=== PATIENT | female | born 1980 | race Caucasian/White ===

== ENCOUNTER 2019-08-25 14:58 | Emergency (ER) | payer OTHER ==
[~2019-08-25] VITALS: Ht 157.5 cm; Wt 68.0 kg
[2019-08-25 15:23] VITALS: BP_SYST 124
[2019-08-25] MEDS ORDERED: IPRATROPIUM/ALBUTEROL SULFATE 3 ML AMPUL.NEB (DUONEB) INH ONE (15:30)
[2019-08-25] MEDS ORDERED: PREDNISONE 20 MG TABLET PO ONE (15:30)
[2019-08-25] MEDS ORDERED: IPRATROPIUM BROM 0.5 MG/2.5 ML VIAL.NEB (ATROVENT) INH ONE (15:45)
[2019-08-25] MEDS ORDERED: ALBUTEROL SULFATE 0.083% 2.5 MG/3 ML VIAL.NEB INH ONE (15:45)
--- NOTE | 2019-08-25 15:45 | NUR ---
PAtient presented to ER C/O SOB. Patient A&Ox4, skin pink and warm, afebrile, ambulatory to ER, denies N/V/D, denies pain. Patient states she has SOB today, wheezing X1 week, cold symptoms started Saturday. Patient states she has HX of Asthma.
--- NOTE | 2019-08-25 18:30 | NUR ---
Patient does not wish to proceed with medical care recommended by DR. FERNANDEZ. Patient given information related to possible complications, up to and including , which could occur as a result of leaving hospital at this time. Patient verbalizes understanding of risks involved leaving against medical advice. Patient has signed AMA form.
--- NOTE | 2019-08-25 18:30 | NUR ---
Patient given written and verbal discharge instructions and verbalizes understanding. ER MD discussed with patient the results and treatment provided. Patient in stable condition. ID arm band removed. Rx of Prednisone given. Patient educated on pain management and to follow up with PMD. Pain Scale 0/10 . Opportunity for questions provided and answered. Medication side effect fact sheet provided.
== END 2019-08-25 18:30 | disposition left against medical advice (07) ==
LOC: SED 14:58
DX: J45.901 Unspecified asthma with (acute) exacerbation (principal)
CPT/HCPCS: 86710; 94640; 99284; J7512; J7613; J7620; 36415